=== PATIENT | male | born 1970 | race African-American/Black ===

== ENCOUNTER 2024-06-18 11:46 | Inpatient (IN) | payer BC ==
[~2024-06-18] VITALS: Ht 177.8 cm; Wt 128.8 kg
[2024-06-18] VITALS (9 sets, daily range): BP systolic 153–201; BP diastolic 90–130; PULSE 92–107; RESP 18–20; TEMP 97.4–98.4; O2SAT 95–97
[2024-06-18] MEDS: NITROGLYCERIN 2% OINT 1 GM PKT TOP ONE (13:04)
[2024-06-18 13:14] LABS: BASOPHILS % 0.2 % (0.0-1.0); EOSINOPHILS % 0.2 % (0.0-6.0); HEMATOCRIT 46.8 % (38.2-49.6); HEMOGLOBIN 14.4 g/dL (14.0-18.0); LYMPHOCYTES # (AUTO) 1.8 (1.0-3.2); LYMPHOCYTES % 31.4 % (18.0-39.1); MEAN CORPUSCULAR HEMOGLOBIN 32.2 pg (28-32); MEAN CORPUSCULAR HGB CONC 30.8 g/dL (31-35); MEAN CORPUSCULAR VOLUME 104.7 fL (81-99); MONOCYTES # (AUTO) 0.5 (0.2-0.8); MONOCYTES % 8.4 % (4.4-11.3); NEUTROPHILS # (AUTO) 3.5 (2.1-6.9); NEUTROPHILS % 59.5 % (38.7-80.0); PLATELET COUNT 217 x10e3/uL (140-360); RED BLOOD COUNT 4.47 x10e6/uL (4.3-5.7); RED CELL DISTRIBUTION WIDTH 13.5 % (11.7-14.4); WHITE BLOOD COUNT 5.83 x10e3/uL (4.8-10.8)
[2024-06-18 13:18] LABS: INR 1.01; PROTHROMBIN TIME 13.8 seconds (11.9-14.5)
[2024-06-18 13:28] LABS: ALBUMIN 3.8 g/dL (3.5-5.0); ALBUMIN/GLOBULIN RATIO 1.1 (0.8-2.0); ANION GAP 14.1 mmol/L (8-16); BILIRUBIN,TOTAL 2.9 mg/dL (0.2-1.2); CALCIUM 9.3 mg/dL (8.4-10.2); CREATININE, SERUM 1.55 mg/dL (0.72-1.25); MAGNESIUM 2.2 MG/DL (1.3-2.1); POTASSIUM 4.1 mmol/L (3.5-5.1); TOTAL PROTEIN 7.3 g/dL (6.5-8.1)
[2024-06-18 13:33] LABS: TROPONIN I 0.039 ng/mL (0-0.300)
[2024-06-18 13:39] LABS: B-TYPE NATRIURETIC PEPTIDE2 880.4 pg/mL (0-100)
[2024-06-18] MEDS: HYDRALAZINE HCL 20 MG/ML VIAL IV STA (13:49)
[2024-06-18] MEDS: FUROSEMIDE INJ 10 MG/ML 4 ML VIAL IV ONE (13:51)
[2024-06-18] MEDS ORDERED: ONDANSETRON HCL INJ 2MG/ML 2ML 2 MG/ML VIAL IV PRN (14:15)
[2024-06-18] MEDS ORDERED: Morphine 2mg Syringe 2 MG/ML SYR IV PRN (14:15)
[2024-06-18 14:43] LABS: CLARITY,URINE SL CLOUDY (CLEAR); COLOR,URINE YELLOW (YELLOW); LEUKOCYTE ESTERASE ,URINE NEGATIVE (NEGATIVE); NITRITE,URINE NEGATIVE (NEGATIVE); PH,URINE 6 (5 - 7)
[2024-06-18 14:44] LABS: BILIRUBIN,URINE NEGATIVE (NEGATIVE); GLUCOSE, URINE NEGATIVE (NEGATIVE); KETONES,URINE NEGATIVE (NEGATIVE); PROTEIN,URINE DIPSTICK 1+ (NEGATIVE); URINE UROBILINOGEN 0.2 mg/dL (0.2 - 1)
[2024-06-18] MEDS: ASPIRIN 325 MG TAB EC PO ONE (14:55)
[2024-06-18] MEDS: FAMOTIDINE 20 MG/2 ML VIAL IV SCH (14:55)
[2024-06-18] MEDS ORDERED: POLYETHYLENE GLYCOL 3350 17 GM PACK PO PRN (15:00)
[2024-06-18] MEDS ORDERED: ACETAMINOPHEN 325 MG TAB PO PRN (15:00)
[2024-06-18 15:01] LABS: BACTERIA,URINE RARE /HPF; WBC,URINE (MAN) 0-5 /HPF (0-5)
[2024-06-18 15:02] LABS: TRICHOMONAS,URINE RARE
[2024-06-18] MEDS: METOPROLOL TARTRATE INJ 1 MG/ML VIAL IV PRN (16:17)
[2024-06-18] MEDS: DOCUSATE SODIUM 100 MG CAP PO SCH (17:06)
[2024-06-18] MEDS: METRONIDAZOLE 500 MG TAB PO SCH (17:06)
[2024-06-18] MEDS: NITROGLYCERIN 2% OINT 1 GM PKT TOP SCH (17:07)
[2024-06-18] MEDS: HYDRALAZINE HCL 20 MG/ML VIAL IV PRN (17:07)
[2024-06-18] MEDS ORDERED: CLONIDINE HCL 0.1 MG TAB PO PRN (17:45)
[2024-06-18] MEDS: HYDRALAZINE HCL 25 MG TAB PO SCH (18:32)
[2024-06-18] MEDS: CARVEDILOL 12.5 MG TAB PO SCH (18:32)
[2024-06-18] MEDS: HYDROCHLOROTHIAZIDE 25 MG TAB PO SCH (18:33)
[2024-06-18] MEDS: LOSARTAN POTASSIUM 100 MG TAB PO ONE (18:33)
[2024-06-18 19:00] LABS: ANION GAP 15.9 mmol/L (8-16); CALCIUM 9.3 mg/dL (8.4-10.2); CREATININE, SERUM 1.55 mg/dL (0.72-1.25); MAGNESIUM 2.1 MG/DL (1.3-2.1); PHOSPHORUS 3.4 MG/DL (2.3-4.7); POTASSIUM 3.9 mmol/L (3.5-5.1)
[2024-06-18] MEDS: METOPROLOL TARTRATE INJ 1 MG/ML VIAL ONE (19:23)
[2024-06-18] MEDS ORDERED: FUROSEMIDE INJ 10 MG/ML 4 ML VIAL IV SCH (21:00)
[2024-06-19] VITALS (34 sets, daily range): BP systolic 113–183; BP diastolic 66–135; PULSE 63–94; RESP 13–32; TEMP 97.3–98.6; O2SAT 86–100
[2024-06-19 05:20] LABS: BASOPHILS % 0.1 % (0.0-1.0); EOSINOPHILS % 0.4 % (0.0-6.0); HEMATOCRIT 39.9 % (38.2-49.6); HEMOGLOBIN 12.4 g/dL (14.0-18.0); LYMPHOCYTES # (AUTO) 1.6 (1.0-3.2); LYMPHOCYTES % 21.3 % (18.0-39.1); MEAN CORPUSCULAR HEMOGLOBIN 32.5 pg (28-32); MEAN CORPUSCULAR HGB CONC 31.1 g/dL (31-35); MEAN CORPUSCULAR VOLUME 104.5 fL (81-99); MONOCYTES # (AUTO) 0.7 (0.2-0.8); MONOCYTES % 9.2 % (4.4-11.3); NEUTROPHILS % 68.4 % (38.7-80.0); PLATELET COUNT 200 x10e3/uL (140-360); RED BLOOD COUNT 3.82 x10e6/uL (4.3-5.7); RED CELL DISTRIBUTION WIDTH 13.6 % (11.7-14.4); WHITE BLOOD COUNT 7.27 x10e3/uL (4.8-10.8)
[2024-06-19 06:03] LABS: ALBUMIN 3.1 g/dL (3.5-5.0); ALBUMIN/GLOBULIN RATIO 1.1 (0.8-2.0); ANION GAP 11.2 mmol/L (8-16); BILIRUBIN,TOTAL 2.6 mg/dL (0.2-1.2); CHOL/HDL RATIO 5.4 (3.9-4.7); CREATININE, SERUM 1.45 mg/dL (0.72-1.25)
[2024-06-19 06:12] LABS: POTASSIUM 3.2 mmol/L (3.5-5.1)
[2024-06-19 06:39] LABS: PHOSPHORUS 4.3 MG/DL (2.3-4.7)
[2024-06-19 06:45] LABS: TROPONIN I 0.057 ng/mL (0-0.300)
[2024-06-19 06:58] LABS: FREE T4 (FREE THYROXINE) 1.07 ng/dL (0.8-1.8); THYROID STIMULATING HORMONE 0.771 uIU/mL (0.350-4.940)
[2024-06-19] MEDS: FUROSEMIDE INJ 10 MG/ML 4 ML VIAL IV SCH (08:24)
[2024-06-19] MEDS: LOSARTAN POTASSIUM 100 MG TAB PO SCH (08:25)
[2024-06-19] MEDS: ASPIRIN 81 MG ENTERIC COATED PO SCH (08:25)
[2024-06-19] MEDS ORDERED: HYDRALAZINE HCL 20 MG/ML VIAL IV PRN (09:45)
[2024-06-19] MEDS: POTASSIUM CHLORIDE 20MEQ/100ML 200 ML IV ONE (10:22)
[2024-06-19] MEDS: SODIUM CHLORIDE 0.9% 1000ML 1,000 ML IV SCH ×2 (10:23→14:00)
[2024-06-19] MEDS: ACETYLCYSTEINE 200 MG/ML 4 ML VIAL PO SCH (10:23)
[2024-06-19] MEDS: CLONIDINE HCL 0.2 MG/24 HR 1 EA PATCH TOP SCH (10:57)
[2024-06-19] MEDS ORDERED: FUROSEMIDE INJ 10 MG/ML 4 ML VIAL ONE (14:25)
[2024-06-19] MEDS: FUROSEMIDE INJ 10 MG/ML 4 ML VIAL IV ONE (14:30)
[2024-06-19] MEDS: POTASSIUM CHLORIDE 20 MEQ TAB CR PO ONE ×2 (15:17→15:36)
[2024-06-19] MEDS: HEPARIN SOD (PORCINE) 1000 UNIT/ML 30ML ONE (15:24)
[2024-06-19] MEDS: VERAPAMIL HCL 2.5 MG/ML 2 ML VIAL ONE (15:25)
[2024-06-19] MEDS: SODIUM CHLORIDE 0.9% 1000ML 1,000 ML ONE (15:25)
[2024-06-19] MEDS: HEPARIN SOD/SOD CHLORIDE 2,000 ML ONE (15:25)
[2024-06-19] MEDS: LIDOCAINE HCL 2% LOCAL 20 ML VIAL ONE (15:26)
[2024-06-19] MEDS: IOPAMIDOL 370 MG/ML 100 ML INFUS..BTL INJ ONE ×2 (15:26→15:34)
[2024-06-19] MEDS: MIDAZOLAM HCL 2 MG/2 ML VIAL ONE (15:34)
[2024-06-19] MEDS: FENTANYL CITRATE/PF 100MCG/2 ML INJ ONE (15:34)
[2024-06-19] MEDS: BIVALRIUDIN 250 MG/VIAL VIAL IV ONE ×2 (15:34→15:35)
[2024-06-19] MEDS: PRASUGREL 10 MG TAB ONE (15:35)
[2024-06-19] MEDS: HYDRALAZINE HCL 20 MG/ML VIAL ONE (15:35)
[2024-06-19] MEDS ORDERED: ACETYLCYSTEINE 200 MG/1 ML 10 ML VIAL PO SCH (17:00)
[2024-06-19] MEDS: ATORVASTATIN 20 MG TAB PO SCH (20:37)
[2024-06-19 23:55] LABS: ANION GAP 18.6 mmol/L (8-16); CALCIUM 9.5 mg/dL (8.4-10.2); CREATININE, SERUM 1.68 mg/dL (0.72-1.25); PHOSPHORUS 4.5 MG/DL (2.3-4.7); POTASSIUM 3.6 mmol/L (3.5-5.1)
[2024-06-20] VITALS (47 sets, daily range): BP systolic 102–163; BP diastolic 64–111; PULSE 55–89; RESP 4–26; TEMP 97.9–98.6; O2SAT 90–100
[2024-06-20 06:45] LABS: BASOPHILS % 0.3 % (0.0-1.0); EOSINOPHILS % 0.4 % (0.0-6.0); HEMATOCRIT 42.6 % (38.2-49.6); HEMOGLOBIN 13.3 g/dL (14.0-18.0); LYMPHOCYTES # (AUTO) 2.2 (1.0-3.2); MEAN CORPUSCULAR HEMOGLOBIN 32.1 pg (28-32); MEAN CORPUSCULAR HGB CONC 31.2 g/dL (31-35); MEAN CORPUSCULAR VOLUME 102.9 fL (81-99); MONOCYTES # (AUTO) 0.9 (0.2-0.8); MONOCYTES % 11.2 % (4.4-11.3); NEUTROPHILS # (AUTO) 4.7 (2.1-6.9); NEUTROPHILS % 59.7 % (38.7-80.0); PLATELET COUNT 220 x10e3/uL (140-360); RED BLOOD COUNT 4.14 x10e6/uL (4.3-5.7); RED CELL DISTRIBUTION WIDTH 13.6 % (11.7-14.4); WHITE BLOOD COUNT 7.89 x10e3/uL (4.8-10.8)
[2024-06-20 07:04] LABS: INR 1.01; PROTHROMBIN TIME 13.8 seconds (11.9-14.5)
[2024-06-20 07:05] LABS: PARTIAL THROMBOPLASTIN TIME 27.9 seconds (23.8-35.5)
[2024-06-20 07:15] LABS: ALBUMIN 3.4 g/dL (3.5-5.0); ANION GAP 14.5 mmol/L (8-16); BILIRUBIN,TOTAL 2.9 mg/dL (0.2-1.2); CALCIUM 9.4 mg/dL (8.4-10.2); CHOL/HDL RATIO 5.1 (3.9-4.7); CREATININE, SERUM 1.74 mg/dL (0.72-1.25); POTASSIUM 3.5 mmol/L (3.5-5.1); TOTAL PROTEIN 6.9 g/dL (6.5-8.1)
[2024-06-20] MEDS: PRASUGREL 10 MG TAB PO SCH (07:46)
[2024-06-20] MEDS: ASPIRIN 325 MG TAB PO SCH (07:48)
[2024-06-20] MEDS: ASPIRIN 81 MG ENTERIC COATED PO SCH (10:00)
[2024-06-20] MEDS: ISOSORBIDE MONONITRATE 30 MG TAB CR PO SCH (10:51)
[2024-06-20] MEDS: VALSARTAN 80 MG TAB PO SCH (11:16)
[2024-06-20] MEDS: CARVEDILOL 12.5 MG TAB PO SCH (17:37)
[2024-06-20] MEDS: ATORVASTATIN 40 MG TAB PO SCH (21:18)
[2024-06-21] VITALS (12 sets, daily range): BP systolic 123–144; BP diastolic 74–101; PULSE 54–78; RESP 11–21; TEMP 97.9–98.2; O2SAT 93–99
[2024-06-21 06:11] LABS: BASOPHILS % 0.3 % (0.0-1.0); EOSINOPHILS # (AUTO) 0.1 (0.0-0.4); EOSINOPHILS % 1.4 % (0.0-6.0); HEMATOCRIT 41.6 % (38.2-49.6); HEMOGLOBIN 13.1 g/dL (14.0-18.0); LYMPHOCYTES # (AUTO) 2.3 (1.0-3.2); LYMPHOCYTES % 36.7 % (18.0-39.1); MEAN CORPUSCULAR HEMOGLOBIN 32.4 pg (28-32); MEAN CORPUSCULAR HGB CONC 31.5 g/dL (31-35); MONOCYTES # (AUTO) 0.8 (0.2-0.8); MONOCYTES % 12.3 % (4.4-11.3); NEUTROPHILS # (AUTO) 3.1 (2.1-6.9); PLATELET COUNT 219 x10e3/uL (140-360); RED BLOOD COUNT 4.04 x10e6/uL (4.3-5.7); RED CELL DISTRIBUTION WIDTH 13.7 % (11.7-14.4); WHITE BLOOD COUNT 6.24 x10e3/uL (4.8-10.8)
[2024-06-21 06:40] LABS: ALBUMIN 3.1 g/dL (3.5-5.0); ANION GAP 13.2 mmol/L (8-16); BILIRUBIN,TOTAL 2.4 mg/dL (0.2-1.2); CALCIUM 9.1 mg/dL (8.4-10.2); CREATININE, SERUM 1.66 mg/dL (0.72-1.25); TOTAL PROTEIN 6.3 g/dL (6.5-8.1)
[2024-06-21 06:41] LABS: POTASSIUM 3.2 mmol/L (3.5-5.1)
[2024-06-21] MEDS: POTASSIUM CHLORIDE 20MEQ/100ML 200 ML IV ONE (11:39)
[2024-06-21] MEDS ORDERED: DIOVAN80 MG PO (12:44)
[2024-06-21] MEDS ORDERED: HYDRALAZINE HCL25 MG PO (12:44)
[2024-06-21] MEDS ORDERED: COREG12.5 MG PO (12:44)
[2024-06-21] MEDS ORDERED: Isosorbide Mononitrate PO (12:44)
[2024-06-21] MEDS ORDERED: EFFIENT10 MG PO (12:44)
[2024-06-21] MEDS ORDERED: ASPIRIN EC81 MG PO (12:44)
[2024-06-21] MEDS ORDERED: ATORVASTATIN CA40 MG PO (12:44)
[2024-06-21] MEDS ORDERED: CLONIDINE1 EAC1 TOP (12:56)
[2024-06-21] MEDS: POTASSIUM CHLORIDE 20 MEQ TAB CR PO ONE (13:45)
[2024-06-21] MEDS ORDERED: POTASSIUM CHLORIDE 20 MEQ TAB CR PO ONE (19:00)
[2024-06-21] MEDS ORDERED: METRONIDAZOLE250 MG PO (21:51)
== END 2024-06-21 15:22 | disposition home or self-care (01) | DRG 321 ==
LOC: ER 12:13 → ERHOLD 14:12 → MED/SURG2 15:23 → IMCU 06-19 15:18 → ICU 06-19 17:13
PROVIDERS: ADMIT Internal Medicine; ATTEND Internal Medicine
PROC: 0270376 Dilation of Coronary Artery, One Artery, Bifurcation, with Four or More Drug-eluting Intraluminal Devices, Percutaneous Approach (ICD-10-PCS; principal; 2024-06-19)
PROC: 4A023N7 Measurement of Cardiac Sampling and Pressure, Left Heart, Percutaneous Approach (ICD-10-PCS; 2024-06-19)
PROC: B2111ZZ Fluoroscopy of Multiple Coronary Arteries using Low Osmolar Contrast (ICD-10-PCS; 2024-06-19)
PROC: 4A12X45 Monitoring of Cardiac Electrical Activity, Ambulatory, External Approach (ICD-10-PCS; 2024-06-21)
DX: I13.0 Hypertensive heart and chronic kidney disease with heart failure and stage 1 through stage 4 chronic kidney disease, or unspecified chronic kidney disease (principal); I50.41 Acute combined systolic (congestive) and diastolic (congestive) heart failure; N17.9 Acute kidney failure, unspecified; I16.9 Hypertensive crisis, unspecified; Z68.41 Body mass index [BMI] 40.0-44.9, adult; I25.118 Atherosclerotic heart disease of native coronary artery with other forms of angina pectoris; Z95.5 Presence of coronary angioplasty implant and graft; E66.01 Morbid (severe) obesity due to excess calories; E11.22 Type 2 diabetes mellitus with diabetic chronic kidney disease; N18.32 Chronic kidney disease, stage 3b; I25.2 Old myocardial infarction; E78.00 Pure hypercholesterolemia, unspecified; I08.1 Rheumatic disorders of both mitral and tricuspid valves; A59.00 Urogenital trichomoniasis, unspecified; E87.6 Hypokalemia; N28.1 Cyst of kidney, acquired; I25.5 Ischemic cardiomyopathy; N20.0 Calculus of kidney; E80.7 Disorder of bilirubin metabolism, unspecified; Z71.3 Dietary counseling and surveillance; G47.33 Obstructive sleep apnea (adult) (pediatric); Z91.198 Patient's noncompliance with other medical treatment and regimen for other reason; Z11.52 Encounter for screening for COVID-19
CPT/HCPCS: 36415; 71045; 76770; 76937; 77002; 80048; 80053; 80061; 81001; 82550; 82948; 83036; 83605; 83690; 83735; 83880; 84100; 84439; 84443; 84484; 85025; 85610; 85730; 87040; 87086; 92920; 92928; 93005; 93306; 93458; 94799; 99152; 99153; 99252; 99284; C1725; C1874; C1887; J0360; J0583; J1644; J1940; J2001; J2250; J3480; J7030; Q9967; U0002